=== PATIENT | female | born 1935 | race Caucasian/White ===

== ENCOUNTER 2021-12-02 15:45 | Emergency (ER) | payer OTHER ==
[~2021-12-02] VITALS: Ht 149.9 cm; Wt 44.5 kg
[~2021-12-02 15:45] MED LIST: ALTACE5 MG; CIPRO500 MG PO; MEMANTINE HCL10 MG; PAROXETINE HC12.5 MG; PTE NO RECUERDA; RAZADYNE ER16 MG; TRIPLE ANTIBIOT15 GM TP; WAL ITIN
== END 2021-12-02 18:46 | disposition home or self-care (01) ==
LOC: ER 15:45
DX: S99.821A Other specified injuries of right foot, initial encounter (principal); S93.691A Other sprain of right foot, initial encounter; W19.XXXA Unspecified fall, initial encounter; Y93.89 Activity, other specified; Y92.89 Other specified places as the place of occurrence of the external cause; M79.671 Pain in right foot; I10 Essential (primary) hypertension

== ENCOUNTER 2022-02-21 09:12 | Emergency (ER) | payer OTHER ==
[~2022-02-21] VITALS: Ht 144.8 cm; Wt 40.8 kg
== END 2022-02-21 10:26 | disposition home or self-care (01) ==
LOC: ER 09:12
DX: M72.2 Plantar fascial fibromatosis (principal); Z91.018 Allergy to other foods; Z91.09 Other allergy status, other than to drugs and biological substances